=== PATIENT | female | born 1990 | race Caucasian/White ===

== ENCOUNTER 2018-07-07 06:06 | Day surgery (SDC) | payer OTHER ==
[~2018-07-07] VITALS: Ht 177.8 cm; Wt 93.0 kg
[2018-07-07] VITALS (11 sets, daily range): BP systolic 104–123; BP diastolic 60–76
[~2018-07-07 06:06] MED LIST: GABAPENTIN300 MG ORAL; REMERON15 MG ORAL; RISPERDAL3 MG PO; VENLAFAXINE HCL25 MG ORAL; XANAX2 MG ORAL
[2018-07-07] MEDS ORDERED: Midazolam 2mg/2ml Inj ONE (07:19)
[2018-07-07] MEDS ORDERED: fentaNYL 100 mcg/2 mL IV ONE (07:20)
[2018-07-07] MEDS ORDERED: Bupivacaine 0.5% Inj 30 ml vial INJ ONE (07:27)
[2018-07-07] MEDS ORDERED: Lidocaine 1% Plain 30 ml INJ ONE (07:27)
[2018-07-07] MEDS ORDERED: Bupivacaine w/Epi 0.25% 30ml Vial INJ ONE (07:27)
--- NOTE | 2018-07-07 07:29 | Pre-Procedure Note/Attestation ---
Pre-Procedure Note/Attestation Complete Prior to Procedure Planned Procedure: not applicable Procedure Narrative: loop recorder removal Indications for Procedure Pre-Operative Diagnosis: loop recorder Attestation I attest that I discussed the nature of the procedure; its benefits; risks and complications; and alternatives (and the risks and benefits of such alternatives ), prior to the procedure, with the patient (or the patient's legal business representative). I attest that, if there was a reasonable possibility of needing a blood transfusion, the patient (or the patient's legal business representative) was given the [facility] standardized written summary, pursuant to the Onel Oglesby Blood Safety Act ([place] Health and Safety Code # 1645, as amended). I attest that I re-evaluated the patient just prior to the surgery and that there has been no change in the patient's H&P, except as documented below: Zully Sheffield MD Jul 07, 2018 07:29
[2018-07-07] MEDS ORDERED: Sterile Water Irrig 1000ml IRRIG ONE (07:30)
[2018-07-07] MEDS ORDERED: Lidocaine 1% MPF 10mg/ml 5ml ONE (07:31)
[2018-07-07] MEDS ORDERED: Propofol 200mg/20ml IV ONE ×2 (07:31→07:33)
[2018-07-07] MEDS ORDERED: Lidocaine 1% 10mg/ml/EPI 0.01mg/ml 50ml INJ ONE (07:49)
[2018-07-07] MEDS ORDERED: LR 1000ml 1,000 ML IVLG SCH (07:51)
[2018-07-07] MEDS ORDERED: fentaNYL 100 mcg/2 mL IV PRN (08:00)
[2018-07-07] MEDS ORDERED: Midazolam 2mg/2ml Inj IVP PRN (08:00)
[2018-07-07] MEDS ORDERED: DiphenhydrAMINE 50mg/ml Inj IVP PRN (08:00)
[2018-07-07] MEDS ORDERED: NS Irrig 1000ml IRRIG ONE (08:00)
--- NOTE | 2018-07-07 08:05 | Anethesia Preoperative Eval ---
Anesthesia Pre-op PMH/ROS General Date of Evaluation: Jul 07, 2018 Time of Evaluation: 07:25 Anesthesiologist: Saundra ASA Score: ASA 3 Mallampati Score Class I : Soft palate, uvula, fauces, pillars visible Class II: Soft palate, uvula, fauces visible Class III: Soft palate, base of uvula visible Class IV: Only hard plate visible Mallampati Classification: Class II Surgeon: Magaly Diagnosis: Loop recorder Surgical Procedure: Loop recorder removal Family History: no anesthesia problems Allergies: Coded Allergies: ADHESIVE TAPE (Verified Allergy, Intermediate, 07/04/18) RASH Medications: see eMAR Patient NPO?: Yes NPO Date: Jul 06, 2018 NPO Time: 16:00 Past Medical History Cardiovascular: Reports: CAD, NC Pulmonary: Denies: asthma, COPD, JOAN, other Gastrointestinal/Genitourinary: Denies: GERD, CRI, ESRD, other Neurologic/Psychiatric: Denies: dementia, CVA, depression/anxiety, TIA, other Endocrine: Denies: DM, hypothyroidism, steroids, other HEENT: Denies: cataract (L), cataract (R), glaucoma, HOOPA (L), HOOPA (R), other Hematology/Immune: Denies: anemia, DVT, bleeding disorder, other Musculoskeletal/Integumentary: Denies: OA, RA, DJD, DDD, edema, other PMH Narrative: CAD (s/p NC) PSxH Narrative: Breast augmentation, loop recorder insertion Anesthesia Pre-op Phys. Exam Physician Exam Last Vital Signs Date Time Temp Pulse Resp B/P (MAP) Pulse Ox O2 Delivery O2 Flow Rate FiO2 07/07/18 06:47 Room Air 07/07/18 06:43 96.9 89 18 123/66 99 Constitutional: NAD Neurologic: CN 2-12 intact Cardiovascular: RRR, no M/R/G Respiratory: CTA Gastrointestinal: S/NT/ND Airway Exam Mallampati Score: Class II MO: full ROM: full Teeth: intact Anesthesia Pre-op A/P Labs Chemistry Test 07/07/18 06:30 Human Chorionic Gonadotropin, Qual Negative (NEGATIVE) Serum Test Test 07/07/18 06:30 Human Chorionic Gonadotropin, Qual Negative (NEGATIVE) Risk Assessment & Plan Assessment: Class 3 patient with h/o NC, otherwise healthy Plan: MAC Status Change Before Surgery: No Pre-Antibiotics Drug: None Onel Arguello MD Jul 07, 2018 08:05
--- NOTE | 2018-07-07 08:06 | Immediate Post-Op Evaluation ---
Immediate Post-Op Evalulation Immediate Post-Op Evalulation Procedure: Loop recorder removal Date of Evaluation: Jul 07, 2018 Time of Evaluation: 08:45 IV Fluids: 500 Blood Pressure Systolic: 109 Blood Pressure Diastolic: 66 Pulse Rate: 87 Respiratory Rate: 21 O2 Sat by Pulse Oximetry: 100 Temperature (Fahrenheit): 97.6 Pain Score (1-10): 0 Nausea: No Vomiting: No Complications No complication Patient Status: awake, patent, none Hydration Status: adequate Drug: None Onel Arguello MD Jul 07, 2018 08:06
--- NOTE | 2018-07-07 08:39 | 48 Hour Post Anesthesia Eval ---
Post Anesthesia Evaluation Procedure: Loop recorder removal Date of Evaluation: Jul 07, 2018 Time of Evaluation: 09:05 Blood Pressure Systolic: 121 0: 69 Pulse Rate: 88 Respiratory Rate: 19 O2 Sat by Pulse Oximetry: 100 Airway: patent Nausea: No Vomiting: No Pain Intensity: 0 Hydration Status: adequate Cardiopulmonary Status: Stable Mental Status/LOC: patient returned to baseline Follow-up Care/Observations: As per surgery Post-Anesthesia Complications: No anesthetic complication Follow-up care needed: N/A Onel Arguello MD Jul 07, 2018 08:39
--- NOTE | 2018-07-07 08:51 | Operative Note - PDOC ---
Operative Note Operative Note Pre-op Diagnosis: loop recorder Post-op Diagnosis: same as pre-op Specimen: yes Complications: none Estimated Blood Loss: minimal Drains: none Implant(s) used?: No Description of Procedure [id number] Zully Sheffield MD Jul 07, 2018 08:51
--- NOTE | 2018-07-07 18:45 | Operative Note - Dictated ---
DATE OF OPERATION: 07/07/2018 SURGEON: Zully Sheffield M.D. PROCEDURE: Loop recorder removal. IDENTIFICATION DATA: This is a 28-year-old female, who had a loop recorder for 1 year. She was brought for a loop recorder removal. She and her mother were explained all the indications for the procedure, alternative not to do that, possible complications, and risks and agrees. The patient was mildly sedated. She was placed on the operating table and locally scrubbed and draped in sterile fashion. Local anesthesia was applied and a small incision was made and a loop recorder was prolapsed in the wound and pulled out, removed, and then the sutures were applied to the incision and it was dressed in a sterile manner. She tolerated procedure well. There was no complications. PLAN: Plan for her is to go home today. Zully Sheffield M.D. DR: NBA JOB#: [id number] CC:
--- NOTE | 2018-07-07 22:21 | Cardiology Progress Note ---
Subjective Subjective [id number] Objective Last 24 Hour Vital Signs Date Time Temp Pulse Resp B/P (MAP) Pulse Ox O2 Delivery O2 Flow Rate FiO2 07/07/18 10:05 97.0 87 18 123/74 99 Room Air 07/07/18 09:50 86 16 117/75 96 Room Air 07/07/18 09:35 83 15 117/76 97 Room Air 07/07/18 09:30 97.9 80 18 104/62 97 Room Air 07/07/18 09:20 79 19 106/65 97 Room Air 07/07/18 09:05 89 23 109/66 99 Room Air 07/07/18 08:55 82 17 108/67 100 Room Air 07/07/18 08:45 86 18 108/70 100 Room Air 07/07/18 08:40 84 21 115/60 100 Room Air 07/07/18 08:39 88 19 100 07/07/18 08:37 87 21 100 07/07/18 08:35 97.6 96 21 109/66 100 Simple Mask 6 07/07/18 06:47 Room Air 07/07/18 06:43 96.9 89 18 123/66 99 Room Air Intake and Output 07/06/18 07/07/18 18:59 06:59 # Voids 1 Laboratory Tests Test 07/07/18 06:30 Human Chorionic Gonadotropin, Qual Negative (NEGATIVE) Zully Sheffield MD Jul 07, 2018 22:21
--- NOTE | 2018-07-07 23:30 | Pre-op HX & Phy Repo 2 SIG ---
DATE OF ADMISSION: 07/07/2018 IDENTIFICATION DATA: This is a 28-year-old female. HISTORY OF PRESENT ILLNESS: The patient is known to me from admission a year ago with syncopal episode, premature ventricular contractions, and elevated troponin. She was admitted to [facility] and she underwent a thorough workup, which was essentially negative besides persistently mildly elevated troponin and because of her frequent premature ventricular contractions, decision was made to insert a loop recorder to make sure she does not have malignant ventricular arrhythmia. PAST MEDICAL HISTORY: Mostly significant for depression and anxiety. MEDICATIONS: She was taking medications. Buspirone 30 mg a day, venlafaxine 150 mg daily, risperidone 30 mg daily, trazodone 60 mg daily, and also alprazolam. PREVIOUS SURGICAL HISTORY: Unremarkable. HABITS: She denies any history of illicit drugs or smoking. REVIEW OF SYSTEMS: Done in detail. PHYSICAL EXAMINATION: GENERAL: The patient is slightly anxious, but not in acute distress. VITAL SIGNS: Blood pressure is 115/70, her heart rate is 60, and her oxygen saturation on room air is 98%. She is afebrile. HEENT: PERRLA. EOMI. NECK: Supple. Jugular venous pressure is not elevated. No thyromegaly. LUNGS: Clear to auscultation bilaterally. HEART: Regular. CHEST: There is a palpable small loop recorder in the left side. BREASTS: No masses. HEART: Regular without significant gallops or murmurs. ABDOMEN: Soft and nontender. Bowel sounds are present. LOWER EXTREMITY: No edema. NEUROLOGICAL: She is intact, although she appears to be anxious. FAMILY HISTORY: Abnormal with dizziness and multiple episodes of fall and syncope. LABORATORY DATA: The WBC was 9.1, hemoglobin 12.8, and platelets 331,000. Her INR was 0.78. Her glucose 113, BUN is 7, creatinine 0.7, sodium 140, potassium 3.9, chloride 103, and bicarb 25. EKG shows sinus rhythm. IMPRESSION AND RECOMMENDATION: The patient post 1 year wearing of loop recorder was interrogated multiple times and there was no evidence of any malignant significant arrhythmia, which could be life threatening. So, decision was made up to 1 year to remove the loop recorder and the patient is coming today for that procedure. She is aware about indications, alternatives not to do that, and possible complications, which were listed in detail and she understands and agrees. Zully Sheffield M.D. DR: NBA JOB#: [id number] CC:
== END 2018-07-07 10:10 | disposition home or self-care (01) ==
LOC: SUR 06:06
DX: Z45.09 Encounter for adjustment and management of other cardiac device (principal); R55 Syncope and collapse; I49.3 Ventricular premature depolarization; F32.9 Major depressive disorder, single episode, unspecified; F41.9 Anxiety disorder, unspecified; I25.10 Atherosclerotic heart disease of native coronary artery without angina pectoris; I25.2 Old myocardial infarction
CPT/HCPCS: 33284; 36415; 84703; J2250; J2704; 94003; 94150